=== PATIENT | male | born 1985 | race Caucasian/White ===

== ENCOUNTER 2024-02-05 15:21 | Emergency (ER) | payer OTHER, SELFPAY ==
[2024-02-05 15:30] VITALS: BP 203/113; PULSE 112; RESP 18; TEMP 36.4; O2SAT 100
[2024-02-05] MEDS: Please add drug allergy info to patient profile. 1 EACH XX (16:31)
[2024-02-05] MEDS: LORazepam (*CRX) 0.5 MG TABLET PO (17:02)
--- NOTE | 2024-02-05 17:03 | PC.NURSE ---
Patient states he does not want to hurt himself or anyone else, he says he doesnt feel safe and is very anxious. I explained to patient that he is safe here. Patient resting in room at this time
--- NOTE | 2024-02-05 17:22 | ED_ITS ---
HPI - General Adult General Chief complaint: Psychiatric Symptoms Stated complaint: mental health Time Seen by Provider: 02/05/24 16:02 History of Present Illness HPI narrative: Patient is a 38-year-old male who presents ER for psychiatric evaluation. Reports he is currently in a half-way house where he is feeling anxious. He would like to be hospitalized because he is feel more safe in that type of setting. He has no suicidal ideation or homicidal ideation. He denies depressi on. He does have history of PTSD. 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 Patient reports when he is anxious his blood pressure goes up and he begins to sweats which is occurring right now. No other complaints at this time. Related Data Allergies Allergy/AdvReac Type Severity Reaction Status Date / Time No Known Allergies Allergy Verified 02/05/24 16:32 Review of Systems Review of Systems: All systems reviewed & are unremarkable except as noted in HPI and below Constitutional: Constitutional: Reports no additional constitutional complaints ENT: Reports system reviewed and no additional complaints, except as documented Cardiovascular: Cardiovascular: Reports no additional cardiovascular complaints Respiratory: Respiratory: Reports no additional respiratory complaints Neurologic: Reports system reviewed and no additional complaints, except as documented Psychiatric: Psychiatric: Reports anxiety, Denies depression, Denies homicidal ideation and Denies suicidal ideation [facility] Past Medical History Medical History (Updated 02/05/24 @ 17:26 by Blake Guevara MD) Optic nerve hypoplasia of both eyes Social History Social History Substance use type: former substance user Exam Narrative: GENERAL: Well-appearing, well-nourished, and in no acute distress. HEAD: Normocephalic, atraumatic. ENT: Mucous membranes moist. CHEST: Clear to auscultation. No respiratory distress. HEART: Regular rate and rhythm. Normal peripheral pulses. EXTREMITIES: Normal range of motion. No edema. SKIN: Warm, dry, no rash. NEURO: Alert and oriented x3. PSYCH: Normal mood and affect. Course Course Emergency Course: crisis evaluated right is patient was wanting to leave. He did receive some oral Ativan. He has been given resources but does not require hospitalization from a psychiatric standpoint. Vital Signs Vital signs: Vital Signs Temperature 97.6 F 02/05/24 15:30 Pulse Rate 112 H 02/05/24 15:30 Respiratory Rate 18 02/05/24 15:30 Blood Pressure 203/113 H 02/05/24 15:30 Pulse Oximetry 100 02/05/24 15:30 Oxygen Delivery Room Air 02/05/24 15:30 Temperature 97.6 F 02/05/24 15:30 Pulse Rate 112 H 02/05/24 15:30 Respiratory Rate 18 02/05/24 15:30 Blood Pressure 203/113 H 02/05/24 15:30 Pulse Oximetry 100 02/05/24 15:30 Oxygen Delivery Room Air 02/05/24 15:30 Medical Decision Making Vital Signs Vital Signs: Vital Signs Temperature 97.6 F 02/05/24 15:30 Pulse Rate 112 H 02/05/24 15:30 Respiratory Rate 18 02/05/24 15:30 Blood Pressure 203/113 H 02/05/24 15:30 Pulse Oximetry 100 02/05/24 15:30 Oxygen Delivery Room Air 02/05/24 15:30 Temperature 97.6 F 02/05/24 15:30 Pulse Rate 112 H 02/05/24 15:30 Respiratory Rate 18 02/05/24 15:30 Blood Pressure 203/113 H 02/05/24 15:30 Pulse Oximetry 100 02/05/24 15:30 Oxygen Delivery Room Air 02/05/24 15:30 Discharge Plan Discharge Clinical Impression: Anxiety Patient Disposition: Home, Self-Care Condition: Stable Instructions: Anxiety (ED) Additional Instructions: Please use resources provided by crisis. Return ER if you have thoughts of harming yourself or others. Patient Language: Ivorian Prescriptions: New hydroxyzine pamoate 25 mg capsule 25 mg PO TID PRN (Reason: anxiety) Qty: 14 0RF Follow-up/Referrals: UNKNOWN,DOCTOR [Primary Care Provider] -
== END 2024-02-05 18:14 | disposition home or self-care (01) ==
PROVIDERS: Emergency Provider Emergency Medicine
DX: F41.9 Anxiety disorder, unspecified (principal)
CPT/HCPCS: 99283; A9270